=== PATIENT | male | born 1945 | race Caucasian/White ===

== ENCOUNTER 2020-08-06 07:13 | Observation (INO) | payer MEDICARE, BC ==
[2020-08-06 08:06] LABS: #Basophils 0.1 10x3/uL (0.0-0.2); #Eosinphils 0.2 10x3/uL (0.0-0.5); #Monocytes 0.5 10x3/uL (0.0-1.1); #Neutrophils 4.9 10x3/uL (1.5-8.4); %Basophils 0.7 % (0.0-2.0); %Eosinophils 2.6 % (0.0-6.0); %Lymphocytes 19.4 % (18.0-47.0); %Monocytes 7.7 % (0.0-10.0); %Neutrophils 69.3 % (40.0-75.0); Hemoglobin 15.4 g/dL (13.5-17.5); Mean Corpuscular Hemoglobin 30.6 pg (27.0-33.0); Mean Corpuscular Volume 92.6 fl (81.2-95.1); Mean Platelet Volume 12.5 fl (7.4-10.4); Platelet Count 157 10x3/uL (150-450); RBC Distribution Width 12.9 % (11.5-14.5); Red Blood Cell (RBC) Count 5.03 10x6/uL (4.32-5.72)
[2020-08-06 08:33] LABS: ALT (SGPT) 38 U/L (8-55); AST (SGOT) 24 U/L (5-34); Albumin 3.7 g/dL (3.4-4.8); Alkaline Phosphatase 80 U/L (40-110); Anion Gap 12 mmol/L (10-20); BUN (Urea Nitrogen) 18 mg/dL (8.4-25.7); Bilirubin, Total 0.9 mg/dL (0.2-1.2); Calc. Creatinine Clearance 0 mL/min (70-130); Calcium 8.4 mg/dL (7.8-10.44); Carbon Dioxide 24 mmol/L (23-31); Chloride 107 mmol/L (98-107); Globulin 2.3 g/dL (2.4-3.5); Glucose 111 mg/dL (83-110); Sodium 139 mmol/L (136-145)
[2020-08-06 08:56] LABS: CKMB 2.1 ng/mL (0-6.6)
[2020-08-06 11:34] LABS: Troponin I 0.108 ng/mL (< 0.028)
[2020-08-06 11:52] VITALS: BMI 29.9
[2020-08-06] MEDS ORDERED: Ondansetron PF 4 MG/2 ML Vial IVP PRN (13:40)
[2020-08-06] MEDS ORDERED: Acetaminophen 325 MG TAB PO PRN (13:40)
[2020-08-06] MEDS ORDERED: Nitroglycerin 0.4 MG TAB (25 Tab Bottle) SL PRN (13:40)
[2020-08-06] MEDS ORDERED: hydrALAZINE 20 MG/ML VIAL SLOW IVP PRN (13:45)
[2020-08-06 14:30] LABS: Troponin I 0.118 ng/mL (< 0.028)
[2020-08-06] MEDS ORDERED: Chlorthalidone 25 MG TAB PO SCH (16:15)
[2020-08-06] MEDS ORDERED: Atorvastatin Calcium 40 MG TAB PO SCH (21:00)
[2020-08-06] MEDS: Metoprolol Tartrate 25 MG TAB PO SCH (23:04)
[2020-08-07 06:27] LABS: Anion Gap 15 mmol/L (10-20)
[2020-08-07 06:32] LABS: BUN (Urea Nitrogen) 13 mg/dL (8.4-25.7); Calc. Creatinine Clearance 88 mL/min (70-130); Calcium 9.7 mg/dL (7.8-10.44); Carbon Dioxide 27 mmol/L (23-31); Chloride 103 mmol/L (98-107); Glucose 96 mg/dL (83-110); Sodium 141 mmol/L (136-145)
[2020-08-07 06:41] LABS: #Basophils 0.1 10x3/uL (0.0-0.2); #Eosinphils 0.2 10x3/uL (0.0-0.5); #Monocytes 0.8 10x3/uL (0.0-1.1); #Neutrophils 6.9 10x3/uL (1.5-8.4); %Basophils 0.6 % (0.0-2.0); %Eosinophils 2.2 % (0.0-6.0); %Lymphocytes 23.7 % (18.0-47.0); %Monocytes 7.6 % (0.0-10.0); %Neutrophils 65.4 % (40.0-75.0); Hemoglobin 17.6 g/dL (13.5-17.5); Mean Corpuscular Hemoglobin 30.8 pg (27.0-33.0); Mean Corpuscular Volume 93.4 fl (81.2-95.1); Platelet Count 173 10x3/uL (150-450); RBC Distribution Width 12.9 % (11.5-14.5); Red Blood Cell (RBC) Count 5.72 10x6/uL (4.32-5.72); White Blood Cell (WBC) Count 10.5 10x3/uL (3.5-10.5)
[2020-08-07] MEDS: Metoprolol Tartrate 25 MG TAB PO SCH (07:55)
[2020-08-07] MEDS ORDERED: Aspirin Chewable 81 MG TAB PO SCH (09:00)
[2020-08-07] MEDS ORDERED: Chlorthalidone 25 MG TAB PO SCH (09:00)
[2020-08-07 11:31] VITALS: BP 135/83; TEMP 98
[2020-08-07 13:09] LABS: SARS-CoV-2 PCR by NAA Not Detected (NotDetected)
== END 2020-08-07 15:58 | disposition home or self-care (01) ==
LOC: CSHERS 07:13 → CSHTELE 11:03
PROVIDERS: ADMIT Internal Medicine; ATTEND Internal Medicine
DX: I10 Essential (primary) hypertension (principal); I25.10 Atherosclerotic heart disease of native coronary artery without angina pectoris; Z95.1 Presence of aortocoronary bypass graft; G47.33 Obstructive sleep apnea (adult) (pediatric); E78.5 Hyperlipidemia, unspecified; R42 Dizziness and giddiness; Z20.822 Contact with and (suspected) exposure to COVID-19
CPT/HCPCS: 71045; 80048; 80053; 82553; 84484 ×2; 85025 ×2; 93005; 99284; G0378 ×3; U0003; U0005; 87635